=== PATIENT | female | born 1990 | race Caucasian/White ===

== ENCOUNTER 2022-07-03 15:30 | Emergency (ER) | payer OTHER ==
[~2022-07-03] VITALS: Ht 149.9 cm; Wt 65.9 kg
[2022-07-03 16:31] LABS: GLUCOMETER DEV NAME(LOC) ERT.5; GLUCOSE,POINT OF CARE 286 MG/DL (70-110)
[2022-07-03] MEDS ORDERED: IBUPROFEN 600 MG TABLET PO ONE (17:30)
[2022-07-03 20:45] VITALS: BP 119/66
== END 2022-07-03 21:04 ==
LOC: EMS 15:35
DX: E11.9 Type 2 diabetes mellitus without complications; F15.10 Other stimulant abuse, uncomplicated; F17.210 Nicotine dependence, cigarettes, uncomplicated
CPT/HCPCS: 72170; 74021; 82962; 99284